=== PATIENT | female | born 1985 | race Caucasian/White ===

== ENCOUNTER 2018-10-25 17:14 | Emergency (ER) | payer OTHER ==
[~2018-10-25] VITALS: Ht 162.6 cm; Wt 70.4 kg
[2018-10-25] MEDS ORDERED: ONDANSETRON ODT 4 MG ONE (17:32)
[2018-10-25] MEDS ORDERED: KETOROLAC 30 MG/1 ML ONE (17:32)
[2018-10-25 17:46] LABS: BASOPHILS # (AUTO) 0.04 x10^3/uL (0-0.1); BASOPHILS % (AUTO) 0 % (0-1); EOSINOPHILS # (AUTO) 0.08 x10^3/uL (0-0.4); EOSINOPHILS % (AUTO) 1 % (1-7); LYMPHOCYTES # (AUTO) 2.34 x10^3/uL (1-3.4); LYMPHOCYTES % (AUTO) 15 % (22-44); MD NO; MEAN CORPUSCULAR HEMOGLOBIN 32.1 pg (27.0-34.8); MEAN CORPUSCULAR HGB CONC 33.9 g/dL (32.4-35.8); MEAN CORPUSCULAR VOLUME 94.7 fL (80-100); MEAN PLATELET VOLUME 7.8 fL (7.4-10.4); MONOCYTES # (AUTO) 1.17 x10^3/uL (0.2-0.8); MONOCYTES % (AUTO) 7 % (2-9); NEUTROPHILS # (AUTO) 12.42 x10^3/uL (1.8-6.8); NEUTROPHILS % (AUTO) 77 % (42-75); PLATELET COUNT 257 x10^3/uL (130-400); RED BLOOD COUNT 4.19 x10^6/uL (3.82-5.3); RED CELL DISTRIBUTION WIDTH 12.9 % (9.6-15.2)
[2018-10-25 17:46] LABS: MICROSCOPIC INDICATED
[2018-10-25 17:56] LABS: ALBUMIN 4.1 g/dL (3.4-5.0); ANION GAP 9 mmol/L (5-15); CALCIUM 9.3 mg/dL (8.5-10.1); CHLORIDE 109 mmol/L (98-107); CREATININE 1.23 mg/dL (0.55-1.02)
[2018-10-25 17:58] LABS: CULTURE INDICATED? NO
[2018-10-25] MEDS ORDERED: KETOROLAC 60 MG/2 ML IM ONE (18:00)
[2018-10-25] MEDS ORDERED: ONDANSETRON ODT 4 MG PO ONE (18:00)
[2018-10-25 20:09] VITALS: BP 127/56
== END 2018-10-25 20:11 | disposition home or self-care (01) ==
LOC: ED 17:41
DX: N20.2 Calculus of kidney with calculus of ureter (principal)
CPT/HCPCS: 36415; 74018; 74176; 80048; 81001; 82040; 84703; 85025; 96372; 99284; J1885; Q0162

== ENCOUNTER 2021-03-27 14:32 | Outpatient (CLI) | payer OTHER ==
[~2021-03-27 14:32] MED LIST: LIDOCAINE 1%, 10ML ONE; LIDOCAINE-MPF 1%, 5ML ONE; TRIAMCINOLONE ACETONIDE 40 MG/ML, 1ML ONE
[2021-03-27] MEDS ORDERED: GADOBUTROL 10 MMOL/10 ML VIAL ONE (15:25)
[2021-03-27] MEDS ORDERED: OMNIPAQUE 300 MG/ML, 10ML VIAL ONE (15:25)
== END 2021-03-27 23:59 | disposition home or self-care (01) ==
LOC: RAD 14:32
PROVIDERS: ATTEND Family Medicine Sports Medicine
DX: M25.551 Pain in right hip (principal); S73.191A Other sprain of right hip, initial encounter; M25.851 Other specified joint disorders, right hip; X58.XXXA Exposure to other specified factors, initial encounter; Y93.89 Activity, other specified; Y92.89 Other specified places as the place of occurrence of the external cause; Y99.8 Other external cause status
CPT/HCPCS: 27093; 73525; 73722; A9585; J3301; J3490; Q9967